=== PATIENT | male | born 1985 | race Caucasian/White ===

== ENCOUNTER 2023-05-24 22:48 | Emergency (ER) | payer OTHER ==
[2023-05-24] MEDS ORDERED: Boostrix 0.5 ML (Tdap) VIAL (>/=7 yrs of age) ONE (23:06)
[2023-05-24] MEDS ORDERED: Bacitracin 1 PK ONE (23:46)
== END 2023-05-24 23:52 | disposition home or self-care (01) ==
LOC: MADERS 22:48
DX: S61.411A Laceration without foreign body of right hand, initial encounter (principal); W01.0XXA Fall on same level from slipping, tripping and stumbling without subsequent striking against object, initial encounter; Y92.007 Garden or yard of unspecified non-institutional (private) residence as the place of occurrence of the external cause
CPT/HCPCS: 12042; 90471; 90715

== ENCOUNTER 2025-04-17 00:46 | Emergency (ER) | payer OTHER ==
[2025-04-17] MEDS ORDERED: Fluorescein Opthalmic Strip ONE (00:57)
[2025-04-17] MEDS ORDERED: Tetracaine 0.5% PF 4 ML BOT ONE (00:57)
== END 2025-04-17 01:27 | disposition home or self-care (01) ==
LOC: MADERS 00:46
DX: T15.12XA Foreign body in conjunctival sac, left eye, initial encounter (principal)
CPT/HCPCS: 99283